=== PATIENT | male | born 1960 | race Caucasian/White ===

== ENCOUNTER 2021-08-31 19:33 | Emergency (ER) | payer OTHER ==
[2021-08-31] MEDS ORDERED: Morphine 4 MG/ML Syringe IVPUSH ONE (20:03)
--- NOTE | 2021-08-31 20:08 | EDM.PDOC ---
ED [facility] GENERAL MEDICAL PROBLEM - General Stated Complaint: [facility] Time Seen by Provider: 08/31/21 20:04 Source of Information: Reports: Patient History Limitations: Reports: No Limitations - History of Present Illness INITIAL COMMENTS - FREE TEXT/NARRATIVE: Patient is a 61-year-old male with no significant past medical history other than obesity and possible lung cancer which is currently being worked up. Patient presents with a chief complaint of left lower quadrant abdominal pain. Onset was this evening. Onset was abrupt. Patient reports waves of cramping- like pain in his left lower quadrant. He does not have any radiation to the groin or to the back. Patient states he felt sweaty when this happened he tried to do some stretching which did not improve his symptoms. Pain is somewhat subsided without intervention. Patient denies any numbness. Paresthesias in the lower extremities. Denies any urinary symptoms. Patient denies prior history of abnormal colonoscopy. No prior history of kidney stones. Left Lower Abdomen Pain Score (Numeric/FACES): 8 - Related Data Allergies Allergy/AdvReac Type Severity Reaction Status Date / Time No Known Allergies Allergy Verified 08/31/21 21:52 Home Meds: Home Meds Pantoprazole Sodium 40 mg PO DAILY #30 tablet. 07/01/14 [Rx] Sucralfate [Carafate] 1 gm PO ACBED #120 tablet 07/01/14 [Rx] ED ROS GENERAL - Review of Systems Review Of Systems: See Below Free Text/Narrative/Comment: In addition to that documented in the HPI above, the additional ROS was obtained: Constitutional: Denies fevers or chills Eyes: Denies vision changes ENMT: Denies sore throat CV: Denies chest pain Resp: Denies SOB GI: Some vomiting but no diarrhea. : Denies painful urination MSK: Denies recent trauma Skin: Denies new rashes Neuro: Denies new numbness or tingling or weakness Endocrine: Denies unexpected weight loss Heme: Denies bleeding disorders ED EXAM, GI/ABD - Physical Exam Exam: See Below Text/Narrative:: I have reviewed the triage vital signs Const: Well nourished, well developed, appears stated age Eyes: Pupils Equal and reactive to light bilaterally, no conjunctival injection HENT: No signs of trauma or swelling, Neck supple without meningismus CV: Regular Rate Rhythm, Warm, well-perfused extremities RESP: Unlabored respiratory effort GI: soft, non-tender, non-distended, no masses. No guarding. MSK: No gross deformities appreciated Skin: Warm, dry. No rashes Neuro: Alert, auxiliary equipment operator II-XII grossly intact. Sensation and motor function of extremities grossly intact. Psych: Appropriate mood and affect. Course - Vital Signs Last Recorded V/S: Last Vital Signs Temp 37.1 C 08/31/21 19:40 Pulse 73 08/31/21 19:40 Resp 20 08/31/21 19:40 BP 118/78 08/31/21 19:40 Pulse Ox 94 L 08/31/21 19:40 - Orders/Labs/Meds Orders: Active Orders 24 hr Category Date Time Status Abdomen Pelvis wo Cont [CT] Stat Exams 08/31/21 20:03 Taken Labs: Laboratory Tests 08/31/21 08/31/21 08/31/21 Range/Units 20:30 20:30 22:17 WBC 13.27 H (4.23-9.07) K/mm3 RBC 5.06 (4.63-6.08) M/mm3 Hgb 16.0 (13.7-17.5) gm/dl Hct 47.5 (40.1-51.0) % MCV 93.9 H (79.0-92.2) fl MCH 31.6 (25.7-32.2) pg MCHC 33.7 (32.2-35.5) g/dl RDW Std Deviation 43.0 (35.1-43.9) fL Plt Count 245 (163-337) K/mm3 MPV 9.2 L (9.4-12.3) fl Neut % (Auto) 75.1 H (34.0-67.9) % Lymph % (Auto) 14.2 L (21.8-53.1) % [place] % (Auto) 7.4 (5.3-12.2) % Eos % (Auto) 2.8 (0.8-7.0) Baso % (Auto) 0.3 (0.1-1.2) % Neut # (Auto) 9.96 H (1.78-5.38) K/mm3 Lymph # (Auto) 1.89 (1.32-3.57) K/mm3 [place] # (Auto) 0.98 H (0.30-0.82) K/mm3 Eos # (Auto) 0.37 (0.04-0.54) K/mm3 Baso # (Auto) 0.04 (0.01-0.08) K/mm3 Sodium 140 (136-145) mEq/L Potassium 3.6 (3.5-5.1) mEq/L Chloride 103 (98-107) mEq/L Carbon Dioxide 28 (21-32) mEq/L Anion Gap 12.6 (5-15) BUN 20 H (7-18) mg/dL Creatinine 1.1 (0.7-1.3) mg/dL Est Cr Clr Drug Dosing TNP Estimated GFR (MDRD) > 60 (>60) mL/min BUN/Creatinine Ratio 18.2 H (14-18) Glucose 106 H (70-99) mg/dL Calcium 8.6 (8.5-10.1) mg/dL Total Bilirubin 0.6 (0.2-1.0) mg/dL AST 22 (15-37) U/L ALT 37 (16-63) U/L Alkaline Phosphatase 65 (46-116) U/L Total Protein 7.0 (6.4-8.2) g/dl Albumin 3.7 (3.4-5.0) g/dl Globulin 3.3 gm/dL Albumin/Globulin Ratio 1.1 (1-2) Lipase 113 (73-393) U/L Urine Color Yellow (Yellow) Urine Appearance Clear (Clear) Urine pH 6.5 (5.0-8.0) Ur Specific [place] 1.025 (1.005-1.030) Urine Protein 1+ H (Negative) Urine Glucose (UA) Negative (Negative) Urine Ketones 1+ H (Negative) Urine Occult Blood Negative (Negative) Urine Nitrite Negative (Negative) Urine Bilirubin Negative (Negative) Urine Urobilinogen 1.0 (0.2-1.0) Ur Leukocyte Esterase Negative (Negative) Urine RBC 0-5 (0-5) /hpf Urine WBC 0-5 (0-5) /hpf Ur Squamous Epith Cells 0-5 (0-5) /hpf Urine Bacteria Few (FEW) /hpf Urine Mucus Moderate H (FEW) /hpf Meds: Medications Discontinued Medications Generic Name Dose Route Start Last Admin Trade Name Freq PRN Reason Stop Dose Admin Morphine Sulfate 4 mg 11/11/21 20:03 08/31/21 20:32 Morphine 4 Mg/Ml Syringe IVPUSH 08/31/21 20:04 4 mg ONETIME ONE Administration Departure - Departure Time of Disposition: 22:44 Disposition: DC/Tfer to SNF 03 Clinical Impression: Left lower quadrant abdominal pain - Discharge Information Instructions: Abdominal Pain, Adult Referrals: PCP,None [Primary Care Provider] - Forms: ED Department Discharge Additional Instructions: Avoid strenuous activity for the next several days. Monitor your symptoms at home return to the emergency room should you spike fevers have significant worsening of pain or any other emergent concerns. Follow-up with primary care physician on Saturday. Sepsis Event Note (ED) - Focused Exam Vital Signs: Vital Signs Temp Pulse Resp BP Pulse Ox 08/31/21 19:40 37.1 C 73 20 118/78 94 L - My Orders Last 24 Hours: My Active Orders 08/31/21 20:03 Abdomen Pelvis wo Cont [CT] Stat - Assessment/Plan Last 24 Hours: My Active Orders 08/31/21 20:03 Abdomen Pelvis wo Cont [CT] Stat Assessment:: Patient is a 61-year-old male presenting to the emergency room with a complaint of left lower abdominal pain. Patient's ER course was uncomplicated. Vital signs remained stable. Abdominal pain did improve with morphine in the emergency room. Differential diagnosis considered for this patient include abdominal aortic aneurysm, kidney stone, diverticulitis, incarcerated hernia. Laboratory studies demonstrate mildly elevated white blood cell count but no other significant findings. Urinalysis unremarkable. CT scan of the abdomen pelvis did not elicit any clear etiology of patient's symptoms. At this point, patient will be discharged with outpatient follow-up. Return precautions were discussed as usual. Patient agrees with plan of care.
--- NOTE | 2021-09-01 05:54 | CT ---
CT abdomen and pelvis Technique: Multiple axial sections were obtained from above the dome of the diaphragm inferiorly through the pubic symphysis. Intravenous and oral contrast were not utilized. Reconstructed coronal and sagittal images were also obtained. Comparison: No prior abdominal imaging is available. Findings: Visualized lung bases show nothing acute. Noncontrast appearance of the liver and spleen are within normal limits. Gallbladder contains no calcified gallstones. Adrenal glands show no nodule. Pancreas appears within normal limits. Kidneys show no abnormal calcifications. No ureteral dilatation or ureteral calcifications are seen. No bladder calcifications are seen. Abdominal aorta shows atherosclerotic calcification which continues into the iliac vessels. No aneurysm is seen. No retroperitoneal adenopathy or mesenteric abnormalities are seen. Fat-containing umbilical hernia is noted. Appendix is not definitely visualized. Pelvis shows calcifications within a slightly enlarged prostate gland. Very minimal diverticulosis is seen within the sigmoid colon. Small fat-containing left inguinal hernia is noted. Bone window settings were reviewed which show disc space narrowing at L5-S1 with vacuum disc phenomena. Mild degenerative apophyseal change is noted at L4-5 and L3-4. Impression: 1. Small fat-containing left inguinal hernia. Other findings as noted above which are chronic. 2. No renal calculi, ureteral dilatation or ureteral stone is seen. 3. Nothing acute is appreciated on noncontrast CT study of the abdomen and pelvis. Diagnostic code #2 I agree with preliminary report from [facility], finalized on 07/31/21, 10:23 PM CDT, code 1
== END 2021-08-31 22:56 | disposition home or self-care (01) ==
LOC: JD.ED 19:33
DX: R10.32 Left lower quadrant pain (principal)
CPT/HCPCS: 36415; 74176; 80053; 81001; 83690; 85025; 96374; 99284; J2270

== ENCOUNTER 2021-11-27 19:45 | Emergency (ER) | payer OTHER ==
[2021-11-27] MEDS ORDERED: Albuterol/Ipratropium 3.0-0.5 MG/3 ML Neb Soln NEB ONE ×2 (20:25→22:47)
== END 2021-11-27 23:30 | disposition home or self-care (01) ==
LOC: JD.ED 19:45
DX: U07.1 COVID-19 (principal); Z91.030 Bee allergy status; Z79.82 Long term (current) use of aspirin; Z79.899 Other long term (current) drug therapy; Z87.891 Personal history of nicotine dependence
CPT/HCPCS: 36415; 71045; 71275; 80053; 84484; 85025; 85379; 86140; 93005; 94640; 99285; J1642; 93010; J7620-GY